=== PATIENT | female | born 1980 | race Caucasian/White ===

== ENCOUNTER 2024-07-10 15:31 | Emergency (ER) | payer MEDICAID, SELFPAY ==
[2024-07-10 15:32] VITALS: BP 138/76; PULSE 73; RESP 17; TEMP 36; O2SAT 99; BMI 39.6
--- NOTE | 2024-07-10 15:41 | CT_ITS ---
STUDY: CT ABDOMEN AND PELVIS WITH CONTRAST - URINARY TRACT REASON FOR EXAM: Female, 43 years old. Left lower quadrant pain RADIATION DOSAGE (If Supplied By Facility): CTDIvol = ( 15.33 ) mGy, DLP = ( 1314.64 ) mGycm TECHNIQUE: IV 100mL Isovue-300 was administered. Transaxial images were obtained from the dome of the diaphragm to the symphysis pubis subsequent to intravenous contrast administration. Multiplanar coronal and sagittal images were reformatted. The protocol utilizes one or more of the following dose reduction techniques: automated exposure control, adjustment of mA and/or kV according to patient size,and/or use of iterative reconstruction technique. COMPARISON: No relevant prior comparison study available FINDINGS: There is a right lower lobe granuloma. The visualized portions of the heart are within normal limits. Normal liver. Normal gallbladder and extrahepatic biliary system. There are few splenic granulomas. Normal pancreas. Normal bilateral adrenal glands. Normal visualized stomach. Normal small intestine. There are multiple colonic diverticula consistent with diverticulosis. The appendix is visualized and appears normal. Normal abdominal aorta. No retroperitoneal adenopathy. Normal right kidney. Normal left kidney. Normal urinary bladder. The right adnexa is enlarged measuring up to 4.1 x 6.0 x 4.6 cm. There is a low-attenuation focus within the right adnexa that likely reflect a cyst. Normal abdominal wall. Normal osseous structures. CT/Abdomen/Pelvis W IV Cont ONLY IMPRESSION: Enlarged right adnexa likely secondary to an underlying cyst, recommend pelvic ultrasound for further evaluation. Colonic diverticulosis. Electronically Signed: Luz Elena Sheehan MD at 17:06 EDT ,
--- NOTE | 2024-07-10 15:42 | ED.VIS.GI ---
HPI HPI - GI History of Present Illness Chief Complaint: Abd Pain Narrative Narrative: 43-year-old female past medical history of epilepsy, in recovery, presents with left-sided abdominal pain especially left lower quadrant abdominal pain that she has had for the last week. She states she has been having intermittent diarrhea and normal stool. She denies any nausea or vomiting, no dysuria or hematuria. She states she feels feverish and chilled at times. Past abdominal surgery includes 3 C-sections. Last menstrual period was approximately 1 week ago. She relates history that this is been happening over the last week. She feels better when she lies on her left side, and her pain is worsened with bending and movement. She went to urgent care, who directed her here with concern for diverticulitis. PFSH PFSH Allergy/AdvReac Type Severity Reaction Status Date / Time ciprofloxacin (From Cipro) Allergy Severe SEIZURE Verified 07/10/24 15:32 Social History Smoking Status: Current every day smoker tobacco type: cigars ROS ROS ED ROS Narrative Constitutional: Subjective fever and chills HEENT: No sore throat. No neck pain. No loss of vision. No rhinorrhea. Cardiovascular: No chest pain. No palpitations. No pedal edema. Respiratory: No cough, no shortness of breath. Abdominal: No abdominal pain. No nausea. No vomiting. Left lower quadrant to left flank pain. Genitourinary: No dysuria. No hematuria. Musculoskeletal: No myalgias. No arthralgias. Neurologic: No headaches. No dizziness. No lightheadedness. Skin: No rash. No change in color. Psychiatric: No depression. No anxiety. EXAM Physical Exam Narrative Exam Narrative: Afebrile. Vital signs noted. Nontoxic-appearing. HEENT examination reveals PERRL, EOMI. Neck soft and supple. Cardiovascular examination reveals a regular rate and rhythm. Lungs are clear to auscultation bilaterally. Abdomen soft, obese, with mild tenderness palpation left lower quadrant, with normal active bowel sounds. No rebound or guarding. Neurological examination nonfocal and nonlateralizing. Const Vital Signs: 07/10/24 15:32 07/10/24 17:32 Temperature 96.8 F L Temperature Source Temporal Pulse Rate 73 51 L Respiratory Rate 17 19 H Blood Pressure 138/76 H 127/84 H Blood Pressure Mean 96 98 Pulse Ox 99 100 Oxygen Delivery Method Room Air MDM MDM MDM Narrative Medical decision making narrative: As patient is in recovery, she declined narcotic pain medications. Differential diagnosis includes but not limited to diverticulitis especially sigmoid diverticulitis versus ureterolithiasis versus colitis versus nonspecific abdominal pain versus abdominal wall strain, versus ectopic versus ovarian cyst. Comprehensive workup was pursued. I do have lower suspicion for ureterolithiasis because the history and physical does not support this. She will be given Toradol after negative serum test. I reviewed her laboratory work and she has slight elevation of her white count at 12.6 which I think is nonspecific, hemoglobin normal at 13.8, hematocrit 44.2, platelet count normal at 309. Electrolyte panel is significant for an anion gap low at 4, glucose 94, normal sodium of 137 and potassium normal at 4.0. Serum test is negative. Urinalysis is negative for infection with WBC 0-5. I do not feel antibiotics are indicated. CT of the abdomen and pelvis was obtained and radiology report reviewed. While she has diverticulosis, there is no diverticulitis noted. She does have right adnexal fullness and they comment on a larger sized ovary versus possible cyst and recommend pelvic ultrasound. I reviewed the radiology report of the pelvic ultrasound and there is no evidence of ovarian torsion but there is a 3.7 cm hemorrhagic cyst noted on the right ovary. Repeat examination did show mild tenderness more in the right adnexa than on the left. She was given Toradol, and then on repeat examination she feels mildly improved. I feel she can be discharged with follow-up to an [employer]. Return instructions to the emergency department were reviewed. Disposition is discharged home in stable condition. History & Record Review Discussion w/independent historian: Patient Lab Data Attestation: I reviewed the patient's lab results. Labs: Laboratory Results - last 24 hr 07/10/24 15:52 WBC 12.6 H RBC 4.75 Hgb 13.8 Hct 44.2 MCV 93.1 MCH 29.1 MCHC 31.2 L RDW Std Deviation 48.5 H RDW Coeff of [place]ice[place] 14.1 Plt Count 309 MPV 10.1 Immature Gran % (Auto) 0.600 Neut % (Auto) 48.5 Lymph % (Auto) 38.4 [place] % (Auto) 10.3 H Eos % (Auto) 1.5 Baso % (Auto) 0.7 Absolute Neuts (auto) 6.1 Absolute Lymphs (auto) 4.84 H Nucleated RBC % 0 Sodium 137 Potassium 4.0 Chloride 104 Carbon Dioxide 29.0 Anion Gap 4 L BUN 8 Creatinine 0.93 Estim Creat Clear Calc 99.65 Est GFR (MDRD) Af Amer 84 Est GFR (MDRD) Non-Af 70 BUN/Creatinine Ratio 8.6 L Glucose 94 Calcium 9.2 Total Bilirubin 0.20 AST 7 L ALT 12 L Alkaline Phosphatase 48 Total Protein 7.4 Albumin 3.4 Globulin 4.0 Albumin/Globulin Ratio 0.8 L Serum , Qual NEGATIVE Urine Color Yellow Urine Clarity Clear Urine pH 6.0 Ur Specific [place] 1.015 Urine Protein Negative Urine Glucose (UA) Normal Urine Ketones 5 H Urine Occult Blood Negative Urine Nitrite Negative Urine Bilirubin Negative Urine Urobilinogen Normal Ur Leukocyte Esterase 100 H Urine RBC 0-5 SEEN Urine WBC 0-5 SEEN Ur Squamous Epith Cells 0-5 SEEN Urine Bacteria 2+ Urine Mucus 1+ Radiography Diagnostic Testing: Clinical Impression(s) from Imaging Studies Abdomen/Pelvis CT 07/10/24 15:41 IMPRESSION: Enlarged right adnexa likely secondary to an underlying cyst, recommend pelvic ultrasound for further evaluation. Colonic diverticulosis. Electronically Signed: Luz Elena Sheehan MD at 17:06 EDT , Transvaginal US 07/10/24 17:13 IMPRESSION: Minimally complex 3.7 cm cyst in the right ovary could represent a hemorrhagic cyst. Recommend follow-up ultrasound in 6-12 weeks to document resolution. Electronically Signed: Mark Bain MD at 18:52 EDT , Discharge Plan Triage Chief Complaint: Abd Pain ED Provider: Butch Gonzalez Dx/Rx/DC Orders Clinical Impression: Pelvic pain, Hemorrhagic cyst of ovary Instructions: ED Ovarian Cyst, ED Pelvic Pain, Unknown Cause [facility] Referrals: Janiya Sanchez MD [Med Staff - Active Staff] - 10-14 Days if not [facility],Dania Goldman [Primary Care Provider] - Activity Restrictions/Additional Instructions: Continue Tylenol or ibuprofen as needed for pain. Return with increased pain, fever, new or worsening symptoms. Print Language: Frisian Disposition Disposition: Home, Self Care
[2024-07-10] MEDS: 0.9% Normal Saline (1000mL) 1,000 ML 999 ML IV (15:51)
[2024-07-10 15:59] LABS: Absolute Lymphocyte Count 4.84 X10^3/uL (0.83-4.51); Absolute Neutrophil Count 6.1 X10^3/uL (2.0-7.7); Basophil# 0.09 X10^3/uL; Basophil% 0.7 % (0-1); Eosinophil# 0.19 X10^3/uL; Eosinophils% 1.5 % (0-5); Hematocrit 44.2 % (37-47); Hemoglobin 13.8 g/dL (12.0-15.0); Lymphocyte # 4.84 X10^3/ul (0.83-4.51); Lymphocyte % 38.4 % (19-41); Mean Corp Hgb Conc 31.2 g/dL (32-36); Mean Corpuscular Hgb 29.1 pg (27.0-32.0); Mean Corpuscular Volume 93.1 fL (81-99); Mean Platelet Vol. 10.1 fl (6.2-12.0); Monocyte% 10.3 % (0-10); NRBC Flagged by Analyzer 0 % (0-5); Neutrophil % 48.5 % (47-70); Platelet Count 309 K/mm3 (150-450); RBC Distribution Width CV 14.1 % (11.6-14.6); RBC Distribution Width SD 48.5 fl (35.1-43.9); Red Blood Count 4.75 M/mm3 (4.2-5.4); White Blood Count 12.6 K/mm3 (4.4-11.0)
[2024-07-10 16:10] LABS: Color, Urine Yellow (Yellow); Glucose, Dipstick Normal (Normal); Ketone-Dipstick 5 mg/dl (Negative); Leukocyte Esterase-Dipstick 100 /ul (Negative); Nitrite-Dipstick Negative (Negative); Occult Blood-Urine Negative /ul (Negative); Protein-Dipstick Negative (Negative); Specific Gravity, Urine 1.015 (1.002-1.030); Urine Bilirubin Dipstick Negative (Negative); Urine Clarity Clear (Clear); Urine Urobilinogen Normal (Normal)
[2024-07-10 16:13] LABS: Internal QC Validated? YES +Cl - CLEAR BKGD; Pregnancy, Serum, hCG Quali. NEGATIVE Negative
[2024-07-10 16:18] LABS: ALB/GLOB Ratio 0.8 RATIO (0.9-2.4); AST(SGOT) 7 U/L (15-37); Alanine Aminotransfer ALT/SGPT 12 U/L (13-56); Albumin, Serum 3.4 g/dL (3.2-5.0); Alkaline Phosphatase 48 U/L (45-117); Anion Gap 4 (5-15); BUN 8 mg/dL (7-18); BUN/Creat Ratio 8.6 RATIO (10-20); Calcium,Total 9.2 mg/dL (8.5-10.1); Chloride 104 mmol/L (98-107); Creatinine, Serum 0.93 mg/dL (0.55-1.02); EST Glomerular Filtration Rate 70 mL/min (>60); Est Glom Filt Rate - Afr Amer 84 mL/min (>60); Estimated Creatinine Clearance 99.65 ml/min; Glucose 94 mg/dL (74-106); Protein, Total 7.4 g/dL (6.4-8.2); Sodium Level 137 mmol/L (136-145)
[2024-07-10 16:28] LABS: Bacteria 2+ /hpf (None Seen); Mucous, Urine 1+ /hpf (<or=2+); Squamous Epithelial Cells - UA 0-5 SEEN /hpf (5-10)
[2024-07-10 16:30] LABS: Red Blood Cells-Urine 0-5 SEEN /hpf (0-5); White Blood Cells 0-5 SEEN /hpf (0-5)
--- NOTE | 2024-07-10 17:13 | US_ITS ---
INDICATION: Right adnexal pain, cyst on CT EXAMINATION: Ultrasound US Transvaginal Non-OB TECHNIQUE: Transvaginal (for optimal evaluation of the adnexa) pelvic ultrasound was performed. Grayscale, spectral waveform, and color flow Doppler evaluation of the adnexa. COMPARISON: None. FINDINGS: UTERUS: Anteverted. The uterus measures 11.2 cm in length.. There is no uterine mass. The endometrial stripe measures 13 mm in AP diameter which is within normal limits. RIGHT OVARY: Measures 6.2 x 4.4 x 3.8 cm. Enlarged, normal echogenicity. There is normal arterial inflow and venous outflow present in the right ovary. Minimally complex 3.7 cm cyst in the right ovary. LEFT OVARY: Measures 3.3 x 3.1 x 2.6 cm. Non-enlarged, normal echogenicity. There is normal arterial inflow and venous outflow present in the left ovary. FREE FLUID: None. US/Transvaginal Non- IMPRESSION: Minimally complex 3.7 cm cyst in the right ovary could represent a hemorrhagic cyst. Recommend follow-up ultrasound in 6-12 weeks to document resolution. Electronically Signed: Mark Bain MD at 18:52 EDT ,
[2024-07-10 17:32] VITALS: BP 127/84; PULSE 51; RESP 19; O2SAT 100
[2024-07-10] MEDS: Ketorolac 30 MG/ML Syringe IV (17:39)
[2024-07-10 19:00] VITALS: BP 126/69; PULSE 53; RESP 19; O2SAT 97
[2024-07-10 19:15] VITALS: BP 126/69; PULSE 53; RESP 19; TEMP 36.6; O2SAT 97
== END 2024-07-10 19:16 | disposition home or self-care (01) ==
PROVIDERS: Emergency Provider Emergency Medicine; Visit Provider Emergency Medicine
DX: R10.2 Pelvic and perineal pain (principal); N83.201 Unspecified ovarian cyst, right side; F17.290 Nicotine dependence, other tobacco product, uncomplicated
CPT/HCPCS: 74177; 76830; 80053; 81001; 84703; 85025; 96361; 96374; 99283; J7030; Q9967; A4216

== ENCOUNTER → 2024-09-14 | Outpatient (CLI) | payer MEDICAID, SELFPAY ==
[2024-09-14 13:11] LABS: Internal QC Validated? YES +Cl - CLEAR BKGD; Pregnancy, Urine Negative Negative
[2024-09-14 14:15] LABS: HIV - WCH Non-Reactive (Nonreactive); Syphilis Antibodies Non-reactive
[2024-09-15 05:08] LABS: HEPATITIS B SURFACE AG Negative (Negative); Hep B Surface Antibodies Non Reactive (.); Hepatitis B Core Ab Total Negative (Negative); Hepatitis C Ab Non Reactive (Non Reactive)
== END | disposition home or self-care (01) ==
LOC: VSLAB 11:59
PROVIDERS: PCP Nurse Practitioner Family; Visit Provider Nurse Practitioner Family
DX: Z11.3 Encounter for screening for infections with a predominantly sexual mode of transmission (principal)
CPT/HCPCS: 36415; 81025; 86703; 86704; 86705; 86706; 86707; 86780; 86803; 87340; 87350; 87491; 87591

== ENCOUNTER → 2024-09-29 | Outpatient (CLI) | payer MEDICAID, SELFPAY ==
[2024-09-29 12:51] LABS: Basophil# 0.07 X10^3/uL; Basophil% 0.6 % (0-1); Eosinophil# 0.29 X10^3/uL; Eosinophils% 2.7 % (0-5); Hematocrit 37.9 % (37-47); Hemoglobin 11.9 g/dL (12.0-15.0); Lymphocyte % 31.5 % (19-41); Mean Corp Hgb Conc 31.4 g/dL (32-36); Mean Corpuscular Volume 92.4 fL (81-99); Mean Platelet Vol. 9.5 fl (6.2-12.0); Monocyte# 0.96 X10^3/uL; Monocyte% 8.9 % (0-10); NRBC Flagged by Analyzer 0 % (0-5); Neutrophil # 6.04 X10^3/uL (2.7-7.7); Neutrophil % 55.9 % (47-70); Platelet Count 318 K/mm3 (150-450); RBC Distribution Width SD 47.2 fl (35.1-43.9); White Blood Count 10.8 K/mm3 (4.4-11.0)
[2024-09-29 13:10] LABS: Hemoglobin A1c 5.3 % (3.8-5.6)
[2024-09-29 13:24] LABS: Valproic Acid (Depakene) Level 54 ug/mL (50-100)
[2024-09-29 13:44] LABS: Vitamin B12 274 pg/mL (211-911); Vitamin D,25 Hydroxy 24.2 ng/mL
[2024-09-29 14:34] LABS: ALB/GLOB Ratio 0.8 RATIO (0.9-2.4); AST(SGOT) 14 U/L (15-37); Alanine Aminotransfer ALT/SGPT 21 U/L (13-56); Albumin, Serum 3.1 g/dL (3.2-5.0); Alkaline Phosphatase 53 U/L (45-117); Anion Gap 4 (5-15); BUN 17 mg/dL (7-18); BUN/Creat Ratio 17.3 RATIO (10-20); Calcium,Total 8.7 mg/dL (8.5-10.1); Chloride 107 mmol/L (98-107); Cholesterol 160 mg/dL (200); Creatinine, Serum 0.98 mg/dL (0.55-1.02); EST Glomerular Filtration Rate 65 mL/min (>60); Est Glom Filt Rate - Afr Amer 79 mL/min (>60); Globulin 3.8 g/dL (2.2-4.2); Glucose 82 mg/dL (74-106); High Density Lipoprotein 45 mg/dL; Potassium 4.6 mmol/L (3.5-5.1); Protein, Total 6.9 g/dL (6.4-8.2); Sodium Level 138 mmol/L (136-145); Triglycerides 279 mg/dL; Very Low Density Lipoprotein 56 mg/dL (5-40)
== END | disposition home or self-care (01) ==
PROVIDERS: PCP Family Medicine; Visit Provider Family Medicine
DX: Z00.00 Encounter for general adult medical examination without abnormal findings (principal); G40.909 Epilepsy, unspecified, not intractable, without status epilepticus; K21.9 Gastro-esophageal reflux disease without esophagitis
CPT/HCPCS: 36415; 80053; 80061; 80164; 82306; 82607; 83036; 84443; 85025

== ENCOUNTER 2025-09-27 16:39 | Emergency (ER) | payer MEDICAID, SELFPAY ==
[2025-09-27 16:40] VITALS: BP 144/90; PULSE 92; RESP 16; TEMP 35.7; O2SAT 95; BMI 43.7
--- NOTE | 2025-09-27 16:53 | EDS_ITS ---
HPI History of Present Illness Chief Complaint: Lower Extremity Injury Narrative Narrative: Patient is a 45-year-old female presenting to the emergency department for pain behind her left along the left medial thigh. Patient states that it started a few days ago. She states that she had a varicose vein there and a few days ago noticed that she was having pain, redness and swelling to the area. States that she went to urgent care today and they sent her here for evaluation for a DVT. She denies any fever or chills. Denies nausea, vomiting or feeling unwell. Denies any chest pain or shortness of breath. Patient denies history of DVT or PE. Denies any recent travel, hospitalizations or surgeries. Denies any hormone use. Denies any numbness or weakness to her leg. Denies any trauma to that leg. [facility] Medical History Sebaceous cyst Home Medications ?Medication ?Instructions ?Recorded ?Last Taken ?Type atomoxetine 25 mg capsule mg PO 10/05/24 Unknown Histo ry buspirone 30 mg tablet 30 mg PO BID 10/05/24 Unknow n History fluconazole 150 mg tablet 150 mg PO ONCE 10/05/24 Unkn own History fluticasone propionate 110 inhalation 10/05/24 Unknown History mcg/actuation HFA aerosol inhaler loratadine 10 mg tablet 10 mg PO QDAY 10/05/24 Unkno wn History lumateperone 42 mg capsule 42 mg PO QDAY 10/05/24 Unkn own History (Caplyta) nicotine 21 mg/24 hr daily 1 patch topical QDAY Unknown History transdermal patch omeprazole 40 mg capsule,delayed 40 mg PO BID 10/05/24 Unknown History release semaglutide (weight loss) 1 mg/0.5 1 mg subcut Q7D 01/24 Unknown History mL subcutaneous pen injector (Wegovy) vilazodone 10 mg tablet 10 mg PO QDAY 10/05/24 Unkno wn History Allergy/AdvReac Type Severity Reaction Status Date / Time ciprofloxacin (From Cipro) Allergy Severe SEIZURE Verified 09/27/25 16:40 Surgical History H/O foot surgery H/O section Social History Smoking Status: Current every day smoker tobacco type: e-cigarettes alcohol intake: never substance use type: does not use ROS ROS ED ROS Narrative see HPI EXAM Physical Exam Narrative Exam Narrative: Vital signs: Reviewed General: Alert and oriented x 3. No acute distress HEENT: Head is normocephalic and atraumatic, sinuses nontender, pupils equal round and reactive. Nares are patent. Oropharynx and throat exams normal. Neck: Supple without lymphadenopathy nontender Cardiovascular: Regular rate and rhythm, no murmurs. No rubs or gallops. Normal S1 and S2 Respiratory: Clear to auscultation bilaterally. No wheezes, rales, rhonchi Abdominal: Soft and nontender. Normal bowel sounds. No guarding or rebound. Nonsurgical abdomen Extremities: There is erythema and tenderness to palpation of the left medial knee and inner thigh. There is no induration, fluctuance, wound or drainage. DP and PT pulses intact bilaterally. No tenderness palpation of the posterior calf. No bruising. Normal range of motion. Normal sensation. The rest of the physical exam is unremarkable Const Vital Signs: 09/27/25 16:40 Temperature 96.2 F L Temperature Source Temporal Pulse Rate 92 Respiratory Rate 16 Blood Pressure 144/90 H Blood Pressure Mean 108 Pulse Ox 95 Oxygen Delivery Method Room Air MDM MDM MDM Narrative Medical decision making narrative: Patient is a 45-year-old female presenting to the emergency department for left lower extremity redness and pain that started a few days ago. Patient was seen and examined. Vitals are stable. Patient resting in bed comfortably no acute distress. Differential includes but is not limited to: DVT, cellulitis, thrombophlebitis, Singh's cyst DVT ultrasound obtained. Patient given Toradol for symptomatic control. DVT shows no acute DVT. Superficial thrombophlebitis within the left medial leg. Patient was updated on the imaging findings. She was given instructions for management at home including warm compresses, compression, elevation and NSAIDs. Instructed to watch the area for any worsening erythema that would be concerning for possible cellulitis which would prompt return to the emergency department or to visit her primary care doctor. Patient discharged from the Emergency Department. I do not feel that the patient's evaluation reveals any acute reason for admission at this time. I instructed them to either follow-up with their primary care physician or promptly return to the Emergency Department for reevaluation should symptoms worsen or new symptoms develop. I explained wha t symptoms would indicate the need to return to the emergency department. Shared decision making was used. The patient voiced understanding of the treatment plan and is agreeable with it. Clinical impression: Superficial thrombophlebitis History & Record Review Discussion w/independent historian: Patient Radiography Diagnostic Testing: Clinical Impression(s) from Imaging Studies Venous Duplex 09/27/25 17:04 IMPRESSION: No acute deep vein thrombosis. Superficial thrombophlebitis within the left medial leg. Reading Location: [facility] Discharge Plan Triage Chief Complaint: Lower Extremity Injury ED Provider: Mago Gagnon Dx/Rx/DC Orders Clinical Impression: Superficial thrombophlebitis Instructions: ED Thrombophlebitis, Superficial Prescriptions: No Action fluticasone propionate 110 mcg/actuation HFA aerosol inhaler inhalation nicotine 21 mg/24 hr patch 24 hour 1 patch topical QDAY fluconazole 150 mg tablet 150 mg PO ONCE omeprazole 40 mg capsule,delayed release(DR/EC) 40 mg PO BID loratadine 10 mg tablet 10 mg PO QDAY buspirone 30 mg tablet 30 mg PO BID atomoxetine 25 mg capsule PO vilazodone 10 mg tablet 10 mg PO QDAY Caplyta 42 mg capsule 42 mg PO QDAY Wegovy 1 mg/0.5 mL pen injector 1 mg subcut Q7D Primary Care Provider: Rossi Avina Referrals: Rossi Avina, DO [Primary Care Provider, Family Practice] - As soon as possible Activity Restrictions/Additional Instructions: You can apply warm compresses to your thigh. You can also take NSAIDs which include ibuprofen, Motrin, Aleve to help reduce pain and swelling. Elevate your leg to help with swelling and pain as well. Your evaluation in the Emergency Department did not reveal any acute reason for admission. However, I want to emphasize that you may be early in the course of a disease process or illness even if it is not present. For this reason you should follow-up within 24 hours for reevaluation with either your primary care physician or if necessary back here in the Emergency Department. You should return to the Emergency Department immediately if your symptoms worsen or new symptoms develop. Print Language: Bulgarian Disposition Disposition: Home, Self Care Discharge Date/Time: 09/27/25 19:29
[2025-09-27] MEDS: Ketorolac 30 MG/ML Syringe IM (16:56)
--- NOTE | 2025-09-27 17:04 | US_ITS ---
PROCEDURE: VENOUS DUPLEX IMAG/LIMITED/UNI 09/27/2025 REASON FOR EXAM: Redness about the left medial leg TECHNIQUE: Procedure Code: USVDUL Modality: US Procedure: VENOUS DUPLEX IMAG/LIMITED/UNI COMPARISON: None US/Venous Duplex Imag/Limited/Uni IMPRESSION: No acute deep vein thrombosis. Superficial thrombophlebitis within the left medial leg. Reading Location: [id number]
== END 2025-09-27 19:29 | disposition home or self-care (01) ==
PROVIDERS: Emergency Provider Student in an Organized Health Care Education/Training Program; PCP Family Medicine; Visit Provider Student in an Organized Health Care Education/Training Program
DX: I80.02 Phlebitis and thrombophlebitis of superficial vessels of left lower extremity (principal); F17.290 Nicotine dependence, other tobacco product, uncomplicated
CPT/HCPCS: 93971; 96372; 99282

== ENCOUNTER → 2025-10-11 | Outpatient (CLI) | payer MEDICAID, SELFPAY ==
--- NOTE | 2025-10-11 11:08 | VDLE_ITS ---
Reason For Study Reason For Study: Worsening thrombophlebitis RIGHT LEFT CFV is compressible, spontaneous, phasic, competent CFV is compressible, spontaneous, phasic, competent, and demonstrates normal augmentation. and demonstrates normal augmentation. Procedure FV is compressible, spontaneous, phasic, competent This is a venous duplex using B-mode, color flow and and demonstrates normal augmentation. spectral Doppler. POP V is compressible, spontaneous, phasic, competent Exam performed in department. and demonstrates normal augmentation. A preliminary report was called and/or faxed to [facility] T/P Trunk is compressible. RN. PTV is compressible. LT PerV is compressible. Acute superficial vein thrombosis is noted in the GSV mid thigh. It is NONCOMPRESSIBLE and dilated. Thrombus filled varicose veins noted throughout the mid thigh to mid calf. VL/Venous Duplex US, Unilateral Interpretation Summary Acute superficial vein thrombosis noted in the left great saphenous vein and ad jacent varicosities in the mid thigh. Deep veins of the left lower extremity are patent and compressible segmentally. There is no evidence of left lower extremity deep vein thrombosis. Ordering Physician: Tu Rolle Referring Physician: Rossi Avina Performed By: Bonnie Bishop RVT
== END | disposition home or self-care (01) ==
LOC: CVS 11:04
PROVIDERS: PCP Family Medicine
DX: I80.00 Phlebitis and thrombophlebitis of superficial vessels of unspecified lower extremity (principal)
CPT/HCPCS: 93971